=== PATIENT | female | born 1995 | race African-American/Black ===

== ENCOUNTER 2020-12-24 04:35 | Emergency (ER) | payer BC ==
[~2020-12-24] VITALS: Ht 154.9 cm; Wt 132.0 kg
[2020-12-24 05:14] VITALS: BP 117/79
[2020-12-24] MEDS ORDERED: NAPR-681 PO (06:05)
== END 2020-12-24 06:10 | disposition home or self-care (01) ==
LOC: ER 04:35
DX: M79.631 Pain in right forearm (principal); J45.909 Unspecified asthma, uncomplicated; Z98.890 Other specified postprocedural states
CPT/HCPCS: 99282